=== PATIENT | female | born 2000 | race Caucasian/White ===

== ENCOUNTER 2024-02-15 19:26 | Emergency (ER) | payer BC, SELFPAY ==
[2024-02-15 19:27] VITALS: BP 114/72
[2024-02-15 21:28] VITALS: BP 105/68
[2024-02-15 21:30] VITALS: BP 105/68
--- NOTE | 2024-02-15 23:22 | ED.GENMED ---
History of Present Illness
General
Chief Complaint: Female Gasfitter/Gu symptoms
Source: patient
Exam Limitations: none
Time Seen by Provider: 02/15/24 20:29
Nursing documentation reviewed up to this point in time: agreed with
History of Present Illness
History of Present Illness:
23 y/o F
h/o utis in past frequently
had unprotected sex with new boyfriend 5 days ago
the following day had dysuria and went to and was told she had uti
started on pyridium, bactrim
then was called today saying that her culture was negative so she started worrying that maybe she had a retained tampon (she uses tampons to help with discharge sometimes when she doesn't have a period) and also thought maybe she has STI
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
no fever, chills, bleeding, discharge, vomiting, back pain, frequency
Past History
Past History
ED Past Medical History: Asthma
ED Past Surgical History: None
Social History
Tobacco: Non-smoker
Alcohol: None
Drug: None
Personal: Single
Living: with family
Employment: Student
Review of Systems
Review of Systems
Allergies reviewed?: Yes
All Other Systems: Not applicable
Phy Exam
Physical Exam
Physical Exam:
GENERAL: Alert , in no apparent distress
E
CARDIAC: Regular rate and rhythm .
LUNGS: Clear breath sounds bilaterally, no acute respiratory distress, no wheezes/rales/rhonchi
ABDOMEN: Soft, without focal tenderness, no r/g, no cvat, normal bowel sounds
gu: normal external insepction
normal intrenal inspection
clear discharge
no erythema
no cervicitis
no cmt
no retained tampon
SKIN: Warm and dry, skin intact.
PSYCH: Normal and appropriate interaction.
Course
Orders/Labs/Results
Orders:
Orders
02/15/24 21:23
Genital Culture Urgent
EDU Source: Genital
Specimen Description:
Date Specimen was Collected: 02/15/24
Time Specimen was Collected: 21:22
02/15/24 21:24
Chlamydia/GC by PCR Urgent
EDU Source: Endo-Cervical
Specimen Description:
Source:: CERVIX
Date Specimen was Collected: 02/15/24
Time Specimen was Collected: 21:22
Trichomonas - Wet Prep Urgent
EDU Source: Vagina
Specimen Description:
Date Specimen was Collected: 02/15/24
Time Specimen was Collected: :
Vital Signs
Initial and Last Documented VS:
Initial Vital Signs
Temp Pulse Resp BP Pulse Ox
99.7 F 78 22 114/72 98
02/15/24 19:27 02/15/24 19:27 02/15/24 19:27 02/15/24 19:27 02/15/24 19:27
Last Documented Vital Signs
Temp Pulse Resp BP Pulse Ox
99.7 F 66 22 105/68 100
02/15/24 19:27 02/15/24 21:30 02/15/24 21:28 02/15/24 21:30 02/15/24 21:28
MDM/Problems Addressed
Differential Diagnosis Includes:
dysuria, bv,
MDM/Problems Addressed:
23 y/o F
dysuria x 5 days after intercourse
went to and had urine tested, initially told uti, started bactrim but culture neg
now worreid she either has retained tampon or sti
no pelvic pain
no fever
pt uses tampon for having discharge in between her periods
last menstral 2 weeks ago
her exam is very unremarkable
no erythema/cervicitis
no fb
nontender
did not feel the need to repeat urine since pt had neg cultulre
d/c home
we will notify if testing is pos
not likely
*Critical Care Note
Total Time (30-74mins, 75-104mins- exclusive of procedures): Not Applicable
ED Attending Note
-
Portions of this chart may have been created with voice recognition software.� Occasional wrong word or��sound alike� substitutions may have occurred due to the inherent limitations of voice recognition software.
Discharge Plan
Departure
Patient Disposition: Home (Routine Discharge)
Date of Disposition: 02/15/24
Time of Disposition: 21:22
Patient with high blood pressure during this ER visit?: No
Condition: Fair
Covid-19: Not Applicable
Discharge Problem:
Dysuria
Instructions: Dysuria, Adult (DC)
Prescriptions:
No Action
cephalexin 500 MG capsule
500 mg PO BID Qty: 10 0RF
phenazopyridine 100 MG tablet
100 mg PO Q8 Qty: 7 0RF
Referrals:
Luis Daniel Chaudhry MD [Family Provider] -
Activity Restrictions/Additional Instructions:
WE TESTED YOU FOR GONORRHEA/CHLAMYDIA, TRICHOMONAS AND BV
IF YOU HAVE AN INFECTION WE WILL CALL YOU
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
RETURN FOR ANY CONCERNS.
Interventions
Interventions:
*Risk Screen - Suicide Last Done: 02/15/24 19:27
*General Assessment Last Done: 02/15/24 20:52
*Neglect/Abuse Screening Last Done: 02/15/24 19:27
*Nursing Disposition Last Done: 02/15/24 21:30
ED-Female Genitourinary Assessment Last Done: 02/15/24 20:52
Discharge Date and Time
Discharge Date/Time: 02/15/24 21:31
Print Language: MALAY
== END 2024-02-15 21:31 | disposition home or self-care (01) ==
LOC: EMR 19:26
PROVIDERS: EMERGENCY PHYSICIAN Emergency Medicine; FAMILY PHYSICIAN Family Medicine
DX: R30.0 Dysuria (principal); J45.909 Unspecified asthma, uncomplicated; Z87.440 Personal history of urinary (tract) infections
CPT/HCPCS: 99283; 87070; 87210; 87491; 87591

== ENCOUNTER 2024-12-13 18:13 | Emergency (ER) | payer OTHER, SELFPAY ==
[2024-12-13 18:27] VITALS: BP 125/82
[2024-12-13 20:18] VITALS: BMI 24.5
[2024-12-13 20:22] LABS: Urine Albumin Negative (Neg - Trace); Urine Bilirubin Negative (Negative); Urine Character Clear (Clear); Urine Color Yellow; Urine Glucose Negative (Negative); Urine Ketone Negative (Negative); Urine Leukocyte Negative (Negative); Urine Nitrite Negative (Negative); Urine Occult Blood Negative (Negative); Urine Urobilinogen Negative (Neg - 1+)
--- NOTE | 2024-12-13 21:18 | ED.GENMED ---
History of Present Illness
General
Chief Complaint: Urinary Symptoms
Source: patient
Exam Limitations: none
Time Seen by Provider: 12/13/24 20:56
Nursing documentation reviewed up to this point in time: agreed with
History of Present Illness
History of Present Illness:
24-year-old female presents to the ER for evaluation. Patient reports twice today when she urinated and had a bowel movement and she wiped she noticed a bright yellow-orange color on the toilet paper and in the toilet she is not sure if it is from
her urine or this is stool. She denies any abdominal pain she denies any actual vaginal discharge. She denies any urinary frequency urgency or dysuria. She denies any recent fever chills nausea vomiting diarrhea.
Past History
Past History
ED Past Medical History: Asthma
ED Past Surgical History: None
Social History
Tobacco: Non-smoker
Alcohol: None
Drug: None
Personal: Single
Living: with family
Employment: Student
Review of Systems
Review of Systems
Allergies reviewed?: Yes
All Other Systems: ROS reviewed and negative except as documented in HPI and ROS
Constitutional: Reports no symptoms; Denies fever, fatigue or chills
ABD/GI: Reports no symptoms and other (questionable yellowish discoloration on toilet paper and in toilet ); Denies abdominal pain, nausea or vomiting
: Reports other (questionable yellow discharge after urinating )
Skin: Reports no symptoms
Neurological: Reports no symptoms
Psychiatric: Reports no symptoms
Phy Exam
General Physical Exam
General Presentation: no apparent distress
General age: appears stated age
General Skin: warm and dry
General Habitus: normal
General Mental: alert
General Hydration: appears well hydrated
Gastrointestinal Exam
Gastrointestinal Exam: non tender, soft and other (rectal exam neg for stool )
Genitourinary Exam Female
Vaginal Exam: normal
Vaginal Bleeding: none
Vaginal Discharge: other (no vaginal discharge )
Neurological Exam
Neurological Exam: alert and oriented x3
Musculoskeletal Exam
Musculoskeletal Exam: full ROM
Skin Exam
Skin Exam: normal color and warm/dry
Psychiatric Exam
Psychiatric Exam: normal mood/affect
Course
Orders/Labs/Results
Orders:
Orders
12/13/24 20:16
Urinalysis Reflex To Culture Urgent
Date Specimen was Collected: 12/13/24
Time Specimen was Collected: 20:13
12/13/24 22:05
Chlamydia/GC by PCR Urgent
EDU Source: Endo-Cervical
Specimen Description:
Source:: CERVIX
Date Specimen was Collected: 12/13/24
Time Specimen was Collected: 22:04
Vital Signs
Initial and Last Documented VS:
Initial Vital Signs
Temp Pulse Resp BP Pulse Ox
98.4 F 59 16 125/82 98
12/13/24 18:27 12/13/24 18:27 12/13/24 18:27 12/13/24 18:27 12/13/24 18:27
Last Documented Vital Signs
Temp Pulse Resp BP Pulse Ox
98.4 F 59 16 125/82 98
12/13/24 18:27 12/13/24 18:27 12/13/24 18:27 12/13/24 18:27 12/13/24 18:27
MDM/Problems Addressed
MDM/Problems Addressed:
As documented patient wiped after urinating and also wiped after having a bowel movement and saw a bright yellow fluorescent color on the toilet paper and in the toilet and was not sure if this was coming from vaginal / rectal or from urine. On
exam patient had no vaginal discharge and rectal exam was performed which did not show any bright yellow stool. I did send a GC culture though she denies any abnormal vaginal discharge. 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 Nothing on exam patient no acute distress negative urinalysis stable for discharge home
*Critical Care Note
Total Time (30-74mins, 75-104mins- exclusive of procedures): Not Applicable
ED Attending Note
-
Portions of this chart may have been created with voice recognition software.� Occasional wrong word or��sound alike� substitutions may have occurred due to the inherent limitations of voice recognition software.
Discharge Plan
Departure
Patient Disposition: Home (Routine Discharge)
Date of Disposition: 12/13/24
Time of Disposition: 22:00
Patient with high blood pressure during this ER visit?: No
Condition: Fair
Covid-19: Not Applicable
Discharge Problem:
Encounter for medical assessment
Referrals:
[facility] [Provider Group]
[facility] [Outside]
NONE,* [Family Provider] -
Activity Restrictions/Additional Instructions:
As discussed please follow-up with family practice residency clinic.
Return if any worsening of symptoms
Interventions
Interventions:
*Risk Screen - Suicide Last Done: 12/13/24 18:28
*General Assessment Last Done: 12/13/24 20:18
*Neglect/Abuse Screening Last Done: 12/13/24 18:28
*ED- Fall Risk Assessment Last Done: 12/13/24 20:18
*ED COVID-19 Vaccine History Last Done: 12/13/24 20:18
*Nursing Disposition Last Done: 12/13/24 22:09
ED-Female Genitourinary Assessment Last Done: 12/13/24 20:19
Discharge Date and Time
Discharge Date/Time: 12/13/24 22:10
Print Language: AZERI
== END 2024-12-13 22:10 | disposition home or self-care (01) ==
LOC: EMR 18:13
PROVIDERS: Student in an Organized Health Care Education/Training Program; EMERGENCY PHYSICIAN Emergency Medicine
DX: Z04.89 Encounter for examination and observation for other specified reasons (principal); J45.909 Unspecified asthma, uncomplicated
CPT/HCPCS: 99283; 81003; 87491; 87591